=== PATIENT | female | born 1990 | race Two or more races ===

== ENCOUNTER → 2017-11-07 | Outpatient (CLI) | payer OTHER ==
[~2017-11-07] MED LIST: NABUMETONE750 MG PO; TIZANIDINE HCL4 MG PO
== END | disposition home or self-care (01) ==
LOC: NUCLEAR 10:00
DX: M15.0 Primary generalized (osteo)arthritis (principal)
CPT/HCPCS: 78315; A9503

== ENCOUNTER 2018-05-21 09:39 | Outpatient (CLI) | payer OTHER | END 2018-05-21 09:46 | disposition home or self-care (01) | LOC: SONOGRAMA 09:39 | DX: E04.1 Nontoxic single thyroid nodule (principal) ==